=== PATIENT | female | born 1990 | race Caucasian/White ===

== ENCOUNTER 2019-08-22 13:45 | Emergency (ER) | payer MEDICAID ==
[~2019-08-22] VITALS: Ht 160 cm; Wt 45.0 kg
[~2019-08-22 13:45] MED LIST: AZIT250T PO; FLUT9.9S NASAL; PSEU-79 PO
[2019-08-22 13:52] VITALS: BP 131/73; PULSE 81; RESP 16; Ht 160 cm; Wt 45.0 kg
== END 2019-08-22 14:38 | disposition home or self-care (01) ==
LOC: FTE 13:45
DX: J32.9 Chronic sinusitis, unspecified (principal)
CPT/HCPCS: 99283